=== PATIENT | female | born 1970 | race Caucasian/White ===

== ENCOUNTER → 2020-11-25 | Outpatient (CLI) | payer BC, OTHER ==
[2016-03-15 07:56] VITALS: BP 131/84
[~2020-11-25] MED LIST: CYCL10TA2 PO; HYDR-3164 PO
--- NOTE | 2020-11-25 14:59 | RAD ---
EXAM: Right great toe, 3 views. HISTORY: Soft tissue nodule. COMPARISON: None. FINDINGS: 3 views of the right great toe are obtained. There is no fracture, dislocation or subluxati on. There is mild degenerative spurring involving the first metatarsal phalangeal joint. No foreign b mikael or soft tissue lesion is seen. IMPRESSION: 1. No acute osseous finding. 2. Mild first metatarsophalangeal joint osteoarthritis. Electronically signed by: Penny Greene MD (11/25/2020 2:57 PM) [id number]
--- NOTE | 2020-11-25 15:05 | RAD ---
EXAM: Right inguinal sonogram; chest sonogram. HISTORY: Lymphadenopathy. Palpable lump. COMPARISON: None. FINDINGS: Right inguinal sonogram: There are enlarged right inguinal lymph nodes, the largest of which measures 2.1 cm and demonstrates a thickened cortex. These are nonspecific and may be reactive in etiology. Chest: There is a 12 x 10 x 8 mm hypoechoic lesion with posterior shadowing within the left flank at the site of palpable concern. This demonstrates no internal blood flow. IMPRESSION: 1. Prominent right inguinal lymph nodes. These may be reactive in etiology. Continued clinical follow -up is recommended. Follow-up imaging and possible sonographic guided tissue sampling can be performe d if there is continued concern. 2. 12 mm hypoechoic lesion with posterior shadowing within the left flank at the site of palpable con cern. This may be osseous or a calcified lesion. The possibility of a soft tissue nodule is not compl etely excluded sonographically. This can be better characterized with CT. Electronically signed by: Penny Greene MD (11/25/2020 3:02 PM) [id number]
== END ==
LOC: US 13:51
PROVIDERS: ATTEND Nurse Practitioner Family
DX: M19.071 Primary osteoarthritis, right ankle and foot (principal); M77.8 Other enthesopathies, not elsewhere classified; R22.41 Localized swelling, mass and lump, right lower limb
CPT/HCPCS: 73660; 76604; 76881

== ENCOUNTER → 2021-01-21 | Outpatient (CLI) | payer BC ==
[2016-03-15 07:56] VITALS: BP 131/84
--- NOTE | 2021-01-22 12:26 | KCIC ---
CT scan of the abdomen and pelvis without contrast 01/21/2021 CLINICAL HISTORY: Palpable nodule in the soft tissues of the left flank. TECHNIQUE: Unenhanced, contiguous, 3 mm axial sections were obtained through the abdomen. One or more of the following individualized dose reduction techniques were utilized for this study: 1. Automated exposure control. 2. Adjustment of the mA and/or kV according to patient size. 3. Use of iterative reconstruction technique. FINDINGS: A radiopaque marker was placed in the left flank in the area where the patient feels a palp able abnormality. Images through the lung bases are within normal limits. The liver parenchyma has a decreased attenuation consistent with fatty infiltration. The spleen, panc reas, adrenal glands and kidneys are within normal limits. The abdominal aorta tapers normally. The gallbladder is well-distended. No free fluid or free air is within the abdomen. There is no evidence of bowel obstruction. No abnormal soft tissue mass or fluid collection is seen within the subcutaneous soft tissues in the area where the patient feels a palpable abnormality. Minimal S-shaped curvature of the thoracolumbar spine is seen. IMPRESSION: 1. No abnormality is seen in the area where the patient feels a palpable abnormality. 2. No acute abnormality is seen. Electronically signed by: Alejandro Nichole MD (01/22/2021 12:24 PM) [id number]
== END ==
LOC: KCIC CT 10:53
PROVIDERS: ATTEND Nurse Practitioner Family
DX: K82.8 Other specified diseases of gallbladder (principal); R22.2 Localized swelling, mass and lump, trunk
CPT/HCPCS: 74150